=== PATIENT | male | born 1945 | race Caucasian/White ===

== ENCOUNTER → 2017-03-07 | Outpatient (CLI) | payer MEDICARE, OTHER ==
[~2017-03-07] MED LIST: ASPIRIN EC81 MG PO; DORZOLAMIDE-TIM10 ML OPHTH; FISH OIL 1,0001 EAC3 PO; LOPID600 MG PO; PRAVACHOL20 MG PO; TRAVATAN Z OPH2.5 ML OPHTH; VITAMIN D1000 UNI1 PO; ZESTRIL40 MG PO
== END | disposition disaster alternative care site (69) ==
LOC: GRAD 10:45
DX: R31.9 Hematuria, unspecified (principal); C67.9 Malignant neoplasm of bladder, unspecified; K76.0 Fatty (change of) liver, not elsewhere classified; K80.20 Calculus of gallbladder without cholecystitis without obstruction; I96 Gangrene, not elsewhere classified; I71.4 Abdominal aortic aneurysm, without rupture

== ENCOUNTER → 2017-03-29 | Day surgery (SDC) | payer MEDICARE, OTHER ==
[~2017-03-29] VITALS: Ht 182.9 cm; Wt 88.7 kg
--- NOTE | ~2017-03-29 | OR ---
PATIENT'S NAME: CECILIA CHAPPELL [facility] AGE: 71 Y [address] ROOM: [place] [address] LOCATION: [facility] [place] ADMIT DATE: 03/29/2017 OR/Procedure Report DISCHARGE DATE: FAMILY PHYSICIAN: Ravi Garcia MD ATTENDING PHYSICIAN: Fransico Barrientos SURGEON: Fransico Barrientos MD TRANSPORTATION ASSISTANT: DATE OF PROCEDURE: 03/29/2017 PREOPERATIVE DIAGNOSES: 1. Gross hematuria. 2. Bladder mass. POSTOPERATIVE DIAGNOSES: 1. Gross hematuria. 2. Bladder mass. PROCEDURE PERFORMED: Cystoscopy, bilateral retrograde pyelogram, bladder biopsy with fulguration. ANESTHESIA: MAC. COMPLICATIONS: None. INDICATION FOR PROCEDURE: The patient is a 71-year-old male with episodes of painless gross hematuria. Cystoscopy revealed a small superficial bladder tumor. CT scan showed no urological abnormalities. DETAILS OF PROCEDURE: After informed consent was obtained, the patient was taken to the operating room. A MAC anesthetic was applied and he was placed in a dorsal lithotomy position. The groin area was prepped and draped in normal sterile fashion. Cystoscope was introduced into the urethra and bladder without difficulty. Both ureteral orifices were identified. First, the right orifice was cannulated with an 8-Kazakh cone-tipped catheter and a retrograde pyelogram was taken. This showed normal caliber ureter and renal collecting system. There was no hydronephrosis, filling defects, or masses noted. This was then repeated on the contralateral side and the retrograde was completely normal. Following this, the biopsy forceps were introduced and the lesion near the dome of the bladder was identified. It was then biopsied out and sent to Pathology for analysis. The biopsy site was then fulgurated for hemostasis. Following this, the bladder was empty and the procedure terminated. The patient tolerated the procedure well and transferred to recovery room in good condition. PATIENT'S NAME: TASUSANCECILIA Ok [facility] AGE: 71 Y [address] ROOM: [place] [address] LOCATION: [facility] [place] ADMIT DATE: 03/29/2017 OR/Procedure Report DISCHARGE DATE: FAMILY PHYSICIAN: Ravi Garcia MD ATTENDING PHYSICIAN: Fransico Barrientos MD MALIK AUGUSTIN/chinedul /[id number] CC: Ravi Garcia MD d: 03/29/17 1212 t: 04/11/17 1454, OPERATIVE SUMMARY
[2017-03-29 08:22] LABS: BASOPHIL # 0.1 K/uL (0.0-0.2); BASOPHIL % 1.3 %; EOSINOPHIL # 0.2 K/uL (0.0-0.5); EOSINOPHIL % 2.1 %; HEMATOCRIT 42.2 % (37.0-53.0); HEMOGLOBIN 13.6 g/dL (11.0-16.0); IMMATURE GRANULOCYTE # 0.5 K/uL (0.0-0.3); IMMATURE GRANULOCYTE % 4.9 %; LYMPHOCYTE # 2.6 K/uL (0.8-4.0); LYMPHOCYTE % 25.2 %; MCH 27.2 pg (27.0-34.0); MCHC 32.2 gm/dL (32.0-36.5); MCV 84.4 fl (83.0-98.0); MONOCYTE % 9.9 %; MPV 9.4 fl (9.4-12.4); NEUTROPHIL # (ANC) 5.8 K/uL (1.4-9.0); NEUTROPHIL % 56.6 %; NRBC % 0 /100WBC (0-0.00); PLATELET COUNT 215 K/uL (150-450); RDW-CV 16.7 % (11.9-14.6); WBC 10.2 K/uL (4.0-11.0)
[2017-03-29 08:41] LABS: ALBUMIN 3.9 gm/dL (3.5-5.0); ALK PHOS 57 IU/L (33-138); ALT 31 IU/L (12-78); ANION GAP 11.3 (10.0-19.0); AST 17 IU/L (10-40); BLOOD UREA NITROGEN 18 mg/dL (6-24); CALCIUM 8.4 mg/dL (8.5-10.5); CHLORIDE 109 mMol/L (96-110); CO2 25 mMol/L (22-32); CREATININE 1.1 mg/dL (0.6-1.3); ESTIMATED GFR (MDRD EQUATION) > 60; POTASSIUM 4.3 mMol/L (3.7-5.1); SODIUM 141 mMol/L (135-145); TOTAL BILIRUBIN 0.5 mg/dL (0.0-1.5); TOTAL PROTEIN 7.2 g/dL (6.0-8.4)
== END | disposition disaster alternative care site (69) ==
LOC: GPOC 03-24 14:00 → GSDC 07:38 → GPOC 08:00
PROVIDERS: Urology
PROC: BT14ZZZ Fluoroscopy of Kidneys, Ureters and Bladder (ICD-10-PCS; principal; 2017-03-29)
PROC: 0TBB8ZX Excision of Bladder, Via Natural or Artificial Opening Endoscopic, Diagnostic (ICD-10-PCS; 2017-03-29)
DX: N30.01 Acute cystitis with hematuria (principal); N30.21 Other chronic cystitis with hematuria; I10 Essential (primary) hypertension; I25.10 Atherosclerotic heart disease of native coronary artery without angina pectoris; N40.0 Benign prostatic hyperplasia without lower urinary tract symptoms; E78.00 Pure hypercholesterolemia, unspecified; Z98.890 Other specified postprocedural states; Z79.899 Other long term (current) drug therapy; Z87.891 Personal history of nicotine dependence
CPT/HCPCS: J1956; J2001; J7120